=== PATIENT | male | born 1990 | race Caucasian/White ===

== ENCOUNTER 2017-10-12 12:59 | Emergency (ER) | payer SELFPAY ==
--- NOTE | 2017-10-12 14:12 | ER Document Report ---
HPI - HPI Patient complains to provider of: Bilateral foot pain Onset: Other - 1 month Onset/Duration: Constant Quality of pain: Burning Pain Level: 5 Context: Patient presents complaining of bilateral foot pain for the past month. Patient states that he works in [employer] and sweats frequently in his boots. Patient states that whenever he takes his boots off in his feet start to drive to become painful and so he places his shoes back on so that his feet do not dry out. Patient without any fever. Patient denies any itching to feet Associated Symptoms: Other - Lateral foot pain. denies: Fever Exacerbated by: Movement Relieved by: Denies Similar symptoms previously: No Recently seen / treated by doctor: No - ROS ROS below otherwise negative: Yes Systems Reviewed and Negative: Yes All other systems reviewed and negative - CONSTITUTIONAL Constitutional: DENIES: Fever, Chills - REPRODUCTIVE Reproductive: DENIES: : - MUSCULOSKELETAL Musculoskeletal: REPORTS: Extremity pain, Swelling - DERM Skin Color: Erythema Skin Problems: Rash Past Medical History - General Information source: Patient - Social History Smoking Status: Current Every Day Smoker Smoking Education Provided: Yes Frequency of alcohol use: None Drug Abuse: None Occupation: [employer] Lives with: Homeless - He usually sleeps in hotels or in [employer] trailers Family History: Reviewed & Not Pertinent Musculoskeltal Medical History: Reports Hx Musculoskeletal Trauma Skin Medical History: Reports Hx Cellulitis - 09/11/2015 Traumatic Medical History: Reports: Hx Fractures - Clavicle Past Surgical History: Reports: Hx Adenoidectomy, Hx Myringotomy, Hx Tonsillectomy - and adenoids - Immunizations Immunizations up to date: No Hx Diphtheria, Pertussis, Tetanus Vaccination: No Vertical Provider Document - CONSTITUTIONAL Agree With Documented VS: Yes Exam Limitations: No Limitations General Appearance: WD/WN, No Apparent Distress - INFECTION CONTROL TRAVEL OUTSIDE OF THE [place] IN LAST 30 DAYS: No - HEENT HEENT: Atraumatic, Normocephalic - NECK Neck: Normal Inspection - RESPIRATORY Respiratory: Breath Sounds Normal, No Respiratory Distress - CARDIOVASCULAR Cardiovascular: Regular Rate, Regular Rhythm Pulses: Normal: Dorsalis pedis - BACK Back: Normal Inspection - MUSCULOSKELETAL/EXTREMETIES Musculoskeletal/Extremeties: MAEW, Tender - Patient with bilateral foot tenderness, right worse than left. Feet mildly erythematous to dorsal aspect and lateral margins of feet, right plantar surface of foot pale, mildly swollen - NEURO Level of Consciousness: Awake, Alert, Appropriate Motor/Sensory: No Motor Deficit - DERM Integumentary: Warm, Dry. negative: Abscess Notes: See description above Course - Re-evaluation Re-evalutation: 10/12/[address] Mo regarding patient presentation and management, recommends keeping feet dry so that they can heal - Vital Signs Vital signs: Temp Pulse Resp BP Pulse Ox 98.0 F 85 20 136/65 H 97 10/12/17 13:03 10/12/17 13:03 10/12/17 13:03 10/12/17 13:03 10/12/17 13:03 Discharge - Discharge Clinical Impression: Immersion (trench) foot Qualifiers: Encounter type: initial encounter Laterality: unspecified laterality Qualified Code(s): T69.029A - Immersion foot, unspecified foot, initial encounter Condition: Stable Disposition: HOME, SELF-CARE Instructions: Topical Antifungal ([facility]) Additional Instructions: Return immediately for any new or worsening symptoms Followup with your primary care provider, call tomorrow to make a followup appointment Keep feet dry as much as possible Go barefoot or wear sandals when you are not at work Prescriptions: Ketoconazole [Nizoral] 1 applic TP DAILY #30 cream.gm. Forms: Smoking Cessation Education Referrals: [facility] [Provider Group] - Follow up as needed [facility] [Provider Group] - Follow up tomorrow
[2017-10-12 14:40] VITALS: BP 129/61
== END 2017-10-12 14:39 | disposition home or self-care (01) ==
LOC: ER 12:59
DX: T69.029A Immersion foot, unspecified foot, initial encounter (principal); M79.672 Pain in left foot; M79.671 Pain in right foot; X58.XXXA Exposure to other specified factors, initial encounter; F17.200 Nicotine dependence, unspecified, uncomplicated
CPT/HCPCS: 99283

== ENCOUNTER 2017-11-08 19:15 | Emergency (ER) | payer SELFPAY ==
[2017-11-08 19:21] VITALS: BP 141/77
[2017-11-08] MEDS ORDERED: PREDNISONE 20 MG TABLET PO ONE (21:07)
[2017-11-08] MEDS ORDERED: IPRATROPIUM/ALBUTEROL 0.5-2.5 MG/3 ML AMPUL NEB ONE (21:07)
--- NOTE | 2017-11-08 21:09 | ER Document Report ---
ED ENT - General Chief Complaint: Ear Pain Stated Complaint: DIZZINESS Time Seen by Provider: 11/08/17 20:53 Mode of Arrival: Ambulatory Information source: Patient TRAVEL OUTSIDE OF THE [place] IN LAST 30 DAYS: No - HPI Patient complains to provider of: Ear problem, Other - cough Notes: Patient is here with complaints of cough and ear pain. He states that over the weekend he tore down an old trailer and was burning material. Ever since that time he has been coughing a lot. He denies any significant shortness of breath. He denies any chronic lung disease. He is a smoker. He denies any fever. He also complains of some nasal congestion as well as some pain in both of his ears. States that occasionally if he moves his head too quick that he gets dizzy, but this quickly resolves. He denies any dizziness currently. He denies any blurred or loss vision. No blood thinners. No head injury. No headache. He denies any unilateral numbness, tingling, weakness. No rash. No abdominal pain. No nausea, vomiting, diarrhea. He has no other complaints at this time. - Related Data Allergies/Adverse Reactions: No Known Allergies Allergy (Verified 11/08/17 19:18) Past Medical History - Social History Smoking Status: Current Every Day Smoker Frequency of alcohol use: Occasional Drug Abuse: Marijuana Family History: Reviewed & Not Pertinent Patient has suicidal ideation: No Patient has homicidal ideation: No Renal/ Medical History: Denies: Hx Peritoneal Dialysis Musculoskeltal Medical History: Reports Hx Musculoskeletal Trauma Skin Medical History: Reports Hx Cellulitis - 09/11/2015 Traumatic Medical History: Reports: Hx Fractures - Clavicle Past Surgical History: Reports: Hx Adenoidectomy, Hx Myringotomy, Hx Tonsillectomy - and adenoids - Immunizations Immunizations up to date: No Hx Diphtheria, Pertussis, Tetanus Vaccination: No Review of Systems - Review of Systems -: Yes All other systems reviewed and negative Physical Exam - Vital signs Vitals: Temp Pulse Resp BP Pulse Ox 99.2 F 81 18 141/77 H 100 11/08/17 19:20 11/08/17 19:20 11/08/17 19:20 11/08/17 19:20 11/08/17 19:20 - Notes Notes: GENERAL: alert, cooperative, nontoxic, no distress. HEAD: normocephalic, atraumatic EYES: conjunctiva pink without discharge, no external redness or swelling. Pupils equal round react light bilaterally. Extra muscles are intact bilaterally. EARS: no external swelling, no external redness, no mastoid redness, swelling, tenderness. Ear canals are clear without swelling or drainage. TMs pearly peguero , no redness, no bulging, normal landmarks, no perforation. Clear effusion behind both TMs. NOSE: atraumatic, no external swelling. clear rhinorrhea noted. MOUTH/THROAT: mucous membranes moist and pink, posterior pharynx without erythema, swelling, exudate. No trismus or drooling. NECK: soft, supple, full range of motion, no meningismus. CHEST: no distress, lungs clear and equal throughout. Expiratory wheezing throughout. Good air movement. CARDIAC: regular rate and rhythm, no murmur, normal capillary refill, normal pulses. No peripheral edema noted. BACK: full range of motion, no CVA tenderness. EXTREMITIES: full range of motion of all extremities. No redness, no swelling. NEURO: alert and oriented A&O3, no focal deficits, full range of motion of all extremities. Cranial nerves II through XII are grossly intact. PYSCH: appropriate mood, affect. Patient is cooperative. SKIN: pink, warm, dry, no rash. Course - Re-evaluation Re-evalutation: 11/08/17 21:37 Patient is nontoxic appearing with stable vitals. Is here with complaints of cough, congestion, ear pain as well as some intermittent dizziness. Cough is been present since he burned wood from a torn down trailer over the weekend. He is noted to have some extra Tory wheezing throughout. He is a smoker. He was given a breathing treatment and prednisone here in emergency department. On chest x-ray he has a right middle lobe patchy infiltrate. He was given a dose of doxycycline for community-acquired pneumonia here in the emergency department. Patient will also complain of some intermittent dizziness when he moves his head. This is brief in nature. Sounds very much like benign positional vertigo likely secondary to the ear effusions that he has. There is no sign of ear infection. This point the patient will be discharged home with a prescription for Flonase to help facilitate some drainage of his ears. He will also be discharged home with a prescription for albuterol for his wheezing. Patient is instructed to follow-up if he has not better in the next 5 -7 days, sooner for worsening symptoms, difficulty breathing or swallowing, persistent vomiting, severe headache, numbness, tingling, weakness, or for any further concerns. The patient is noted to have elevated blood pressure during today's emergency department visit. The patient was informed of this finding. The patient was instructed that this may be related to pre-hypertension and requires further evaluation with a primary care provider. The patient has no hypertensive symptoms at this time. The patient's emergency department workup and current diagnosis were explained to the patient and or family. Follow-up instructions were provided. Medications if prescribed were discussed. Instructions for when to return to the emergency department including specific worrisome symptoms were discussed with the patient and/or family. - Vital Signs Vital signs: Temp Pulse Resp BP Pulse Ox 99.2 F 81 18 141/77 H 100 11/08/17 19:20 11/08/17 19:20 11/08/17 19:20 11/08/17 19:20 11/08/17 19:20 - Diagnostic Test Radiology reviewed: Image reviewed, Reports reviewed - Patchy right middle lobe pneumonia Discharge - Discharge Clinical Impression: Pneumonia Qualifiers: Pneumonia type: due to unspecified organism Laterality: right Lung location: middle lobe of lung Qualified Code(s): J18.1 - Lobar pneumonia, unspecified organism BPV (benign positional vertigo) Qualifiers: Laterality: bilateral Qualified Code(s): H81.13 - Benign paroxysmal vertigo, bilateral Middle ear effusion Qualifiers: Laterality: bilateral Qualified Code(s): H65.93 - Unspecified nonsuppurative otitis media, bilateral Condition: Stable Disposition: HOME, SELF-CARE Instructions: Vertigo ([facility]), Pneumonia ([facility]) Additional Instructions: Take medications as prescribed. Drink plenty fluids. Follow-up with your doctor if not better in the next 5-7 days, sooner for worsening symptoms, high fever, persistent vomiting, difficulty breathing or swallowing, severe headache , numbness, Hugo, weakness, blurred or loss vision, or for any further concerns. Try to stop smoking. Your blood pressure was elevated during today's visit. Have this rechecked with your doctor. Prescriptions: Albuterol Sulfate [Proair HFA Inhalation Aerosol 8.5 gm MDI] 2 puff IH Q4H PRN # 1 mdi PRN Reason: Doxycycline Hyclate 100 mg PO BID #14 capsule Fluticasone Propionate [Flonase Nasal [place] 50 Mcg/[place] 16 gm] 1 spray NASL Q12 #1 inhaler Meclizine HCl [Antivert 25 mg Tablet] 25 mg PO TID PRN #21 tablet PRN Reason: Forms: Elevated Blood Pressure, Smoking Cessation Education Referrals: [facility] [Provider Group] - Follow up as needed
--- NOTE | 2017-11-08 21:29 | RADIOLOGY REPORT (SQ) ---
EXAM DESCRIPTION: CHEST 2 VIEWS COMPLETED DATE/TIME: 11/08/2017 9:20 pm REASON FOR STUDY: cough, wheezing COMPARISON: None. EXAM PARAMETERS: NUMBER OF VIEWS: two views TECHNIQUE: Digital Frontal and Lateral radiographic views of the chest acquired. RADIATION DOSE: NA LIMITATIONS: none FINDINGS: LUNGS AND PLEURA: Patchy right middle lobe infiltrate. Left lung clear. No pleural effus ion or pneumothorax. MEDIASTINUM AND HILAR STRUCTURES: No masses or contour abnormalities. HEART AND VASCULAR STRUCTURES: Heart normal size. No evidence for failure. BONES: No acute findings. HARDWARE: None in the chest. OTHER: No other significant finding. IMPRESSION: PATCHY RIGHT MIDDLE LOBE INFILTRATE SUSPICIOUS FOR PNEUMONIA. TECHNICAL DOCUMENTATION: JOB ID: [id number] [employer]- All Rights Reserved Reading location - IP/workstation name: [email or web address]
[2017-11-08] MEDS ORDERED: DOXYCYCLINE HYCLATE 100 MG TABLET PO ONE (21:34)
== END 2017-11-08 22:05 | disposition home or self-care (01) ==
LOC: ER 19:15
DX: J18.1 Lobar pneumonia, unspecified organism (principal); H81.13 Benign paroxysmal vertigo, bilateral; H65.93 Unspecified nonsuppurative otitis media, bilateral; R09.81 Nasal congestion; H92.03 Otalgia, bilateral; R05 Cough; R03.0 Elevated blood-pressure reading, without diagnosis of hypertension; F17.200 Nicotine dependence, unspecified, uncomplicated
CPT/HCPCS: 94640; 99283; 71046; J7512; J7620